=== PATIENT | male | born 1985 | race African-American/Black ===

== ENCOUNTER 2017-11-29 12:28 | Emergency (ER) | payer OTHER ==
[~2017-11-29] VITALS: Ht 185.4 cm; Wt 59.0 kg
[2017-11-29] MEDS ORDERED: ZOFRAN ODT4 MG SUBLING (12:47)
[2017-11-29 12:52] VITALS: BP 135/99
== END 2017-11-29 12:53 | disposition home or self-care (01) ==
LOC: M.ERS 12:28
DX: R11.0 Nausea (principal)